=== PATIENT | male | born 1970 | race Caucasian/White ===

== ENCOUNTER 2017-09-23 22:37 | Emergency (ER) | payer OTHER ==
[2017-09-24 00:28] LABS: Potassium 3.7 mmol/L (3.5-5.1)
[2017-09-24 00:29] LABS: Absolute Lymphocytes (CBC) 1.6 K/uL (0.7-4.9); Absolute Monocytes 0.5 K/uL (0.1-1.3); Absolute Neutrophil 3.3 K/uL (1.8-8.0); Basophils % 0.2 % (0-1.3); Eosinophils % 1.5 % (0-4.4); Hematocrit 39.6 % (39.6-49.0); Lymphocytes % 28.7 % (15.3-44.8); MCH 26.4 pg (27.0-35.0); MCV 79.3 fL (80-100); MPV 9.9 fL (7.6-11.3); Monocytes % 9.2 % (3.3-12.3)
[2017-09-24 00:30] LABS: Protime INR 0.92
--- NOTE | 2017-09-24 02:01 | EDPHYS ---
Physician Documentation [facility] Name: Herminio Castro Age: 46 yrs Sex: Male : 1970 Arrival Date: 09/23/2017 Time: 22:38 Bed 5 Private MD: ED Physician Abdirizak Magallanes HPI: 09/24 01:47 This 46 yrs old Male presents to ER via Ambulatory with complaints of Chest gs Soreness, Had Chest Pain And Vision Loss. 01:52 The patient or guardian reports chest pain that is located primarily in the anterior gs chest wall, right. Onset: acutely, just prior to arrival. The pain does not radiate. Associated signs and symptoms: Pertinent positives: dizziness, near-syncope, blurred vision. The chest pain is described as sharp. Duration: The patient or guardian reports a single episode, that lasted 3 minute(s). Modifying factors: The symptoms are alleviated by nothing. the symptoms are aggravated by nothing. Severity of pain: At its worst the pain was severe in the emergency department the pain has resolved. The patient has not experienced similar symptoms in the past. Historical: - Allergies: 09/23 22:56 No Known Allergies; bb - Home Meds: 22:56 None [Active]; bb - PMHx: 22:56 None; bb - PSHx: 22:56 None; bb - Immunization history:: Adult Immunizations up to date. - Social history:: Smoking status: Patient/guardian denies using tobacco, Patient/guardian denies using alcohol, street drugs. - Ebola Screening: : No symptoms or risks identified at this time. ROS: 09/24 01:52 All other systems are negative. gs Exam: 01:52 Head/Face: Normocephalic, atraumatic. Eyes: Pupils equal round and reactive to light, gs extra-ocular motions intact. Lids and lashes normal. Conjunctiva and sclera are non-icteric and not injected. Cornea within normal limits. Periorbital areas with no swelling, redness, or edema. ENT: Nares patent. No nasal discharge, no septal abnormalities noted. Tympanic membranes are normal and external auditory canals are clear. Oropharynx with no redness, swelling, or masses, exudates, or evidence of obstruction, uvula midline. Mucous membranes moist. Neck: Trachea midline, no thyromegaly or masses palpated, and no cervical lymphadenopathy. Supple, full range of motion without nuchal rigidity, or vertebral point tenderness. No Meningismus. Chest/axilla: Normal chest wall appearance and motion. Nontender with no deformity. No lesions are appreciated. Respiratory: Lungs have equal breath sounds bilaterally, clear to auscultation and percussion. No rales, rhonchi or wheezes noted. No increased work of breathing, no retractions or nasal flaring. Abdomen/GI: Soft, non-tender, with normal bowel sounds. No distension or tympany. No guarding or rebound. No evidence of tenderness throughout. Back: No spinal tenderness. No costovertebral tenderness. Full range of motion. Skin: Warm, dry with normal turgor. Normal color with no rashes, no lesions, and no evidence of cellulitis. MS/ Extremity: Pulses equal, no cyanosis. Neurovascular intact. Full, normal range of motion. 01:52 Constitutional: The patient appears alert, awake. 01:52 Cardiovascular: Rate: normal, Rhythm: regular, Pulses: no pulse deficits are appreciated, Heart sounds: normal, murmur, not appreciated, Edema: is not appreciated. 01:52 ECG was reviewed by the Attending Physician. 01:52 Neuro: Orientation: is normal, Mentation: is normal, Cranial nerves: CN II- XII are normal as tested, Cerebellar function: is grossly normal, Motor: moves all fours, strength is 5/5 in all extremities, Sensation: no obvious gross deficits. Vital Signs: 09/23 22:56 BP 160 / 91; Pulse 79; Resp 16 S; Temp 98.8(O); Pulse Ox 96% on R/A; Weight 115.67 kg bb (R); Height 6 ft. 0 in. (182.88 cm) (R); Pain 2/10; 23:00 BP 134 / 90; Pulse 66; Resp 14; Pulse Ox 97% ; bp 09/24 00:07 BP 162 / 96; Pulse 66; Resp 12; Pulse Ox 97% on R/A; ak1 01:00 BP 153 / 105; Pulse 64; Resp 15; Pulse Ox 97% ; bp 01:30 BP 146 / 89; Pulse 65; Resp 14; Pulse Ox 98% ; bp 09/23 22:56 Body Mass Index 34.58 (115.67 kg, 182.88 cm) [facility] Stroke Scale Scores: : NIHSS Score: 0 gs MDM: 09/23 23:24 Patient medically screened. 09/24 01:52 Differential diagnosis: acute myocardial infarction, coronary artery disease thoracic gs aortic disection. Data reviewed: vital signs, nurses notes. Response to treatment: the patient's symptoms have resolved after treatment, the patient's pain is gone. 02:01 Counseling: I had a detailed discussion with the patient and/or guardian regarding: the presence of at least one elevated blood pressure reading (>120/80) during this emergency department visit, lab results, radiology results, the need for outpatient follow up, an agent telegrapher, a urologist. ED course: did not have actual loss of vision, during episode got lightheaded and blurry vision was very brief transient no scotoma.. 09/23 23:31 Order name: Basic Metabolic Panel 09/23 23:31 Order name: CBC with Diff; Complete Time: 02:01 09/23 23:31 Order name: PT-INR; Complete Time: 02:01 09/23 23:31 Order name: Troponin (emerg Dept Use Only); Complete Time: 02:01 09/23 23:31 Order name: XRAY Chest (1 view) 09/23 23:32 Order name: Basic Metabolic Panel; Complete Time: 02:01 EDMS 09/23 22:54 Order name: EKG; Complete Time: 22:54 09/23 22:54 Order name: EKG - Nurse/Tech; Complete Time: 23:19 09/23 23:31 Order name: Cardiac monitoring; Complete Time: 23:51 09/23 23:31 Order name: IV Saline Lock; Complete Time: 23:52 09/23 23:31 Order name: Labs collected and sent; Complete Time: 23:52 09/23 23:31 Order name: O2 Per Protocol; Complete Time: 23:52 09/23 23:31 Order name: CT Aorta for Dissection 09/23 23:31 Order name: CT Head Brain wo Cont 09/23 23:31 Order name: O2 Sat Monitoring; Complete Time: 23:52 EC:52 Rate is 65 beats/min. Rhythm is regular. OH interval is normal. QRS interval is normal. gs T waves are Normal. No ST changes noted. Clinical impression: Normal ECG. Interpreted by me. Administered Medications: No medications were administered Disposition: 09/24/17 02:00 Discharged to Home. Impression: Chest pain, unspecified, Neoplasm of uncertain behavior of left kidney. - Condition is Stable. - Discharge Instructions: Nonspecific Chest Pain, Managing Your Hypertension. - Medication Reconciliation Form, Thank You Letter, Antibiotic Education, Prescription Opioid Use form. - Follow up: Private Physician; When: 2 - 3 days; Reason: Re-evaluation by your physician. Follow up: Joel Chandra MD; When: 2 - 3 days; Reason: Re-evaluation by your physician. NIH Stroke Scale - NIH Stroke Score Date: 09/24/2017 Time: 01:52 Total Score = 0 1a. Level of Consciousness (LOC) - 0(Alert) 1b. Level of Consciousness (LOC) (Year \T\ Age) - 0(Both) 1c. LOC Commands (Open \T\ Closes Eyes/Religious Education Teacher) - 0(Both) 2. Best Gaze (Lateral Gaze Paresis) - 0(Normal) 3. Visual Field Loss - 0(No visual loss) 4. Facial Palsy - 0(Normal) 5a. Left Arm: Motor (10-second hold) - 0(No drift) 5b. Right Arm: Motor (10-second hold) - 0(No drift) 6a. Left Leg: Motor (5-second hold - always test supine) - 0(No drift) 6b. Right Leg: Motor (5-second hold - always test supine) - 0(No drift) 7. Limb Ataxia (finger/nose \T\ heel/john - test with eyes open) - 0(Absent) 8. Sensory Loss (pinprick arms/legs/face) - 0(Normal) 9. Best Language: Aphasia (description/naming/reading) - 0(No aphasia) 10. Dysarthria (speech clarity - read or repeat words) - 0(Normal) 11. Extinction and Inattention (visual/tactile/auditory/spatial/personal) - 0(No abnormality) Initials: gs Signatures: Dispatcher [employer] EDShirley Chavarria RN RN Anastacia Hernandez RN RN ak1 Abdirizak Magallanes MD MD gs Corrections: (The following items were deleted from the chart) 02:16 02:00 09/24/2017 02:00 Discharged to Home. Impression: Chest pain, unspecified; ak1 Neoplasm of uncertain behavior of left kidney. Condition is Stable. Forms are Medication Reconciliation Form, Thank You Letter, Antibiotic Education, Prescription Opioid Use. Follow up: Private Physician; When: 2 - 3 days; Reason: Re-evaluation by your physician. Follow up: Joel Chandra; When: 2 - 3 days; Reason: Re-evaluation by your physician.
--- NOTE | 2017-09-24 02:01 | ER ---
Nurse's Notes [facility] Name: Herminio aCstro Age: 46 yrs Sex: Male : 1970 Arrival Date: 09/23/2017 Time: 22:38 Bed 5 Private MD: Diagnosis: Chest pain, unspecified;Neoplasm of uncertain behavior of left kidney Presentation: 09/23 22:53 Presenting complaint: Patient states: he was driving to work tonight at approx 2014 and bb suddenly felt chest pain to bilateral breast area and had a loss of vision causing him to puller machine and return home symptoms only lasted approx a minute or two is not having chest pain now but says his chest is sore. Transition of care: patient was not received from another setting of care. Onset of symptoms was September 23, 2017 at 20:15. Risk Assessment: Do you want to hurt yourself or someone else? Patient reports no desire to harm self or others. Initial Sepsis Screen: Does the patient meet any 2 criteria? No. Patient's initial sepsis screen is negative. Does the patient have a suspected source of infection? No. Patient's initial sepsis screen is negative. Care prior to arrival: None. 22:53 Method Of Arrival: Ambulatory bb 22:53 Acuity: CHANEL 3 bb Historical: - Allergies: 22:56 No Known Allergies; bb - Home Meds: 22:56 None [Active]; bb - PMHx: 22:56 None; bb - PSHx: 22:56 None; bb - Immunization history:: Adult Immunizations up to date. - Social history:: Smoking status: Patient/guardian denies using tobacco, Patient/guardian denies using alcohol, street drugs. - Ebola Screening: : No symptoms or risks identified at this time. Screenin:24 Abuse screen: Denies threats or abuse. Denies injuries from another. Nutritional bp screening: No deficits noted. Tuberculosis screening: No symptoms or risk factors identified. Fall Risk None identified. Assessment: 23:00 General: Appears in no apparent distress. comfortable, Behavior is cooperative, bp appropriate for age, anxious. Pain: Complains of pain in chest. Neuro: Level of Consciousness is awake, alert, obeys commands, Oriented to person, place, time, situation, Appropriate for age. Cardiovascular: Chest pain is described as mild. Respiratory: Airway is patent Respiratory effort is even, unlabored, Respiratory pattern is regular, symmetrical. GI: No signs and/or symptoms were reported involving the gastrointestinal system. : No signs and/or symptoms were reported regarding the genitourinary system. EENT: No deficits noted. Derm: No deficits noted. Musculoskeletal: Circulation, motion, and sensation intact. Range of motion: intact in all extremities. 09/24 00:00 Reassessment: PT TO CT WITH AREA DIRECTOR OF HOME HEALTH SALES. bp 01:30 Reassessment: ALL CURRENT ORDERS COMPLETED, RESULTS PENDING. VS STABLE ON MONITOR. bp Vital Signs: 09/23 22:56 BP 160 / 91; Pulse 79; Resp 16 S; Temp 98.8(O); Pulse Ox 96% on R/A; Weight 115.67 kg bb (R); Height 6 ft. 0 in. (182.88 cm) (R); Pain 2/10; 23:00 BP 134 / 90; Pulse 66; Resp 14; Pulse Ox 97% ; bp 09/24 00:07 BP 162 / 96; Pulse 66; Resp 12; Pulse Ox 97% on R/A; ak1 01:00 BP 153 / 105; Pulse 64; Resp 15; Pulse Ox 97% ; bp 01:30 BP 146 / 89; Pulse 65; Resp 14; Pulse Ox 98% ; bp 09/23 22:56 Body Mass Index 34.58 (115.67 kg, 182.88 cm) bb NIH Stroke Scale Scores: 01:52 NIHSS Score: 0 ED Course: 09/23 22:38 Patient arrived in ED. do 22:42 Abdirizak Magallanes MD is Attending Physician. gs 22:52 Manoj Stevenson, RN is Primary Nurse. bp 22:56 Triage completed. bb 22:56 Arm band placed on Patient placed in an exam room, on a stretcher, on pulse oximetry. bb Family accompanied patient. 23:24 Patient has correct armband on for positive identification. Bed in low position. Call bp light in reach. Side rails up X2. Adult w/ patient. 23:43 X-ray completed. Portable x-ray completed in exam room. Patient tolerated procedure tm4 well. 23:45 XRAY Chest (1 view) In Process Unspecified. EDMS 23:52 Inserted saline lock: 20 gauge in right forearm, using aseptic technique. Blood bp collected. 09/24 00:09 Radiology exam delayed due to lab results not completed at this time. (BUN/Creatinine). kw1 00:[address] via wheelchair. kw1 01:00 CT Head Brain wo Cont In Process Unspecified. EDMS 01:16 CT Aorta for Dissection In Process Unspecified. EDMS 01:19 CT completed. Patient tolerated procedure well. Patient moved back from CT. kw1 01:57 Joel Chandra MD is Referral Physician. gs 02:14 No provider procedures requiring assistance completed. IV discontinued, intact, ak1 bleeding controlled, No redness/swelling at site. Pressure dressing applied. Administered Medications: No medications were administered Outcome: 02:00 Discharge ordered by MD. gs 02:14 Discharged to home ambulatory, with family. ak1 02:14 Condition: good 02:14 Discharge instructions given to patient, family, Instructed on discharge instructions, follow up and referral plans. Demonstrated understanding of instructions, follow-up care. 02:16 Patient left the ED. ak1 NIH Stroke Scale - NIH Stroke Score Date: 09/24/2017 Time: 01:52 Total Score = 0 1a. Level of Consciousness (LOC) - 0(Alert) 1b. Level of Consciousness (LOC) (Year \T\ Age) - 0(Both) 1c. LOC Commands (Open \T\ Closes Eyes/Typo Machine Operator) - 0(Both) 2. Best Gaze (Lateral Gaze Paresis) - 0(Normal) 3. Visual Field Loss - 0(No visual loss) 4. Facial Palsy - 0(Normal) 5a. Left Arm: Motor (10-second hold) - 0(No drift) 5b. Right Arm: Motor (10-second hold) - 0(No drift) 6a. Left Leg: Motor (5-second hold - always test supine) - 0(No drift) 6b. Right Leg: Motor (5-second hold - always test supine) - 0(No drift) 7. Limb Ataxia (finger/nose \T\ heel/john - test with eyes open) - 0(Absent) 8. Sensory Loss (pinprick arms/legs/face) - 0(Normal) 9. Best Language: Aphasia (description/naming/reading) - 0(No aphasia) 10. Dysarthria (speech clarity - read or repeat words) - 0(Normal) 11. Extinction and Inattention (visual/tactile/auditory/spatial/personal) - 0(No abnormality) Initials: Signatures: Dispatcher [employer] EDMS Blanchard, Lily tm4 Shirley Silver, RN RN bb Anastacia Ruff RN RN ak1 Fatemeh Escalera Gregory, MD MD gs Peltier, Brian, RN RN Reanna Burnette kw1
--- NOTE | 2017-09-24 07:39 | EKG ---
Test Date: 2017-09-23 Test Time: 23:12:09 Social Work Faculty Member: RAFI MEASUREMENT RESULTS: Intervals: Rate: 65 VT: 154 QRSD: 90 QT: 404 QTc: 420 [place]: P: 39 VT: 154 QRS: 38 T: 41 INTERPRETIVE STATEMENTS: Normal sinus rhythm Normal ECG No previous ECG available for comparison Electronically Signed On 09-24-17 07:38:17 CDT by Que Gross
--- NOTE | 2017-09-24 08:26 | RAD REPORT ---
EXAM DESCRIPTION: CT - Angio Aorta For Dissection - 09/24/2017 4:46 am CLINICAL HISTORY: Chest pain radiating to the back. CHEST PAIN COMPARISON: No comparisons TECHNIQUE: CT angiography of the aorta was performed with MIPs. All CT scans are performed using dose optimization technique as appropriate and may include automated exposure control or mA/KV adjustment according to patient size. FINDINGS: A left aortic arch is present with bovine branching pattern of the great vessels.No acute aortic finding is seen such as aneurysm, penetrating ulcer or dissection. The celiac axis, SMA, ENRRIQUE and renal arteries are widely patent. No evidence of pulmonary embolism. The lungs are clear. The liver demonstrates no focal mass or biliary dilatation.The spleen, pancreas, adrenal glands and l eft kidney are within normal limits for arterial phase imaging.The right kidney contains a solid mass midpole medial aspect measuring 2.3 x 2.6 cm. No bowel obstruction, free fluid or abscess.No pathologic enlarged lymphadenopathy identified. No fracture or worrisome bone lesion seen. IMPRESSION: No acute aortic finding is demonstrated. Solid right renal mass noted as detailed measuring 2.6 x 2.3 cm. This is significantly worrisome for a renal cell carcinoma. A preliminary written report was provided at the time of the study, and the report was reviewed prior to final dictation.
--- NOTE | 2017-09-24 08:27 | RAD REPORT ---
EXAM DESCRIPTION: CT - Head Brain Wo Cont - 09/24/2017 4:44 am CLINICAL HISTORY: VISUAL DISTURBANCES Headache COMPARISON: No comparisons TECHNIQUE: All CT scans are performed using dose optimization technique as appropriate and may inclu de automated exposure control or mA/KV adjustment according to patient size. FINDINGS: No intracranial hemorrhage, hydrocephalus or extra-axial fluid collection.No areas of brai n edema or evidence of midline shift. The paranasal sinuses and mastoids are clear. The calvarium is intact. IMPRESSION: No acute intracranial abnormality.
--- NOTE | 2017-09-24 08:34 | RAD REPORT ---
EXAM DESCRIPTION: RAD - Chest Single View - 09/23/2017 11:45 pm CLINICAL HISTORY: CHEST PAIN Chest pain. COMPARISON: No comparisons FINDINGS: Portable technique limits examination quality. The lungs are grossly clear. The heart is normal in size. No displaced fractures. IMPRESSION: No acute intrathoracic process suspected.
== END 2017-09-24 02:16 | disposition home or self-care (01) ==
LOC: ER 22:37
DX: D41.02 Neoplasm of uncertain behavior of left kidney (principal)
CPT/HCPCS: 36415; 70450; 71045; 71275; 74175; 80048; 84484; 85025; 85610; 93005; 99284; Q9967